=== PATIENT | female | born 1995 | race Caucasian/White ===

== ENCOUNTER 2022-07-04 14:03 | Outpatient (CLI) | payer BC, OTHER | END 2022-07-04 14:25 | LOC: SLEEP 14:03 | PROVIDERS: ATTEND Nurse Practitioner Family | DX: G47.61 Periodic limb movement disorder (principal); G47.9 Sleep disorder, unspecified; G47.36 Sleep related hypoventilation in conditions classified elsewhere | CPT/HCPCS: G0399 ==